=== PATIENT | male | born 1960 | race Caucasian/White ===

== ENCOUNTER 2016-10-23 16:30 | Inpatient (IN) | payer BC ==
[~2016-10-23] VITALS: Ht 193 cm; Wt 107.6 kg
--- NOTE | ~2016-10-23 | DS ---
PATIENT'S NAME: SIMON FLYNN [facility] AGE: 56 Y [address] ROOM: [address] [address] [place] [facility] [place] DATE: 10/23/2016 Discharge Summary DISCHARGE DATE: 10/27/2016 FAMILY PHYSICIAN: Ayse Kingston MD ATTENDING PHYSICIAN: Ozzy Stephenson DIAGNOSES: Phlegmon of the sigmoid colon, worrisome for perforated acute diverticulitis. HISTORY OF PRESENT ILLNESS: Mr. Flynn is a 56-year-old gentleman who had developed abdominal pain 1 week prior to admission. He had nausea, vomiting, and fevers associated with this. He felt like he had gotten better, but then had acute onset of severe abdominal pain again a few days later. The patient was evaluated with a CT scan that showed a 6-cm phlegmon posterior to the sigmoid colon, concerning for contained perforation and possibly early abscess formation. There were no diverticula seen, but no obvious masses either. The patient had no prior history of colon problems or diverticulitis. No history of inflammatory bowel disease. He had never had a prior colonoscopy. The patient was transferred to [facility] under the care of Dr. Stephenson. Dr. Stephenson reviewed the CT scan and recommended conservative treatment with bowel rest and IV antibiotics. The patient was admitted to the Medical- Surgical Unit where he initially was allowed sips of water only. Activity as tolerated. Zosyn was started for antibiotic and Dilaudid for pain control. On October 24, the patient was feeling better. He did have some cramping in the lower abdomen. He had had a formed bowel movement. Temperature was 99.2. White blood cell count was 14.9, compared to 17,000 on admission. The patient was started on a clear liquid diet. The following day, the patient continued to feel like he was getting better, but his white blood cell count remained at 14.9. He was advanced to a full liquid diet. On October 26, the patient was doing well, was afebrile, and white blood cell count came down to 8.7. He was advanced to regular diet and IV was saline locked. On the morning of October 27, the patient was feeling good, he had no pain, he was tolerating regular diet, bowels were soft, he was afebrile, white blood cell count remained at 8.5. Arrangements were made for the patient to discharge home. DISCHARGE INSTRUCTIONS: Include no restrictions on diet. No restrictions on activity. We will set up for a CT scan of the abdomen and pelvis in [place], [place] on November 01 to follow up on the phlegmon of the sigmoid colon and to rule out a formation of an abscess. If this does show an abscess, than he could tentatively come up to [place] on November 02 for a drain placement. The patient will also need to plan for a colonoscopy in 6-8 weeks. DISCHARGE MEDICATIONS: 1. Norvasc 5 mg p.o. daily. 2. CoQ10 100 mg p.o. daily. PATIENT'S NAME: SIMON FLYNN [facility] AGE: 56 Y [address] ROOM: [address] [address] [place]: [facility] [place] DATE: 10/23/2016 Discharge Summary DISCHARGE DATE: 10/27/2016 FAMILY PHYSICIAN: Ayse Kingston MD ATTENDING PHYSICIAN: Ozzy Stephenson 3. [place] leaf extract 500 mg p.o. daily. 4. Multivitamin minerals 1 daily for men 2 tabs p.o. daily. 5. Colace 100 mg p.o. twice daily. 6. Advil 400 mg p.o. q.6 hours p.r.n. pain. 7. Artificial tears 1 drop ophthalmic as needed p.r.n. for dry eyes. 8. The patient was previously given a prescription for Cipro 500 mg p.o. twice daily for 7 days, which was to start on October 23. He only took 1 tablet prior to admission. We will have him finish that prescription and an additional 3 days prescription was also written for a total of 10 days. 9. Prescription for Flagyl 500 mg 1 p.o. q.8 hours x10 days was also written for. For specifics on day-to-day care, please refer to the hospital chart. DOREEN CARRINGTON PA-C FOR MD STEPHANIE BOB/junie /[id number] d: 10/28/16 0213 t: 11/06/16 0944, DISCHARGE SUMMARY
--- NOTE | ~2016-10-23 | HP ---
PATIENT'S NAME: SIMON FLYNN [facility] AGE: 56 Y [address] ROOM: [place] [address] [place]: [facility] [place] DATE: 10/23/2016 History & Physical DISCHARGE DATE: FAMILY PHYSICIAN: AYSE ZHANG MD ATTENDING PHYSICIAN: Bernard Stephenson DATE OF SERVICE: CHIEF COMPLAINT: Ruptured sigmoid colon. HISTORY OF PRESENT ILLNESS: The patient is a 56-year-old gentleman, who 1 week ago developed some lower abdominal pain with some nausea, vomiting and fevers. He assumed he had the flu. He continued to work and drink fluids though his appetite was decreased. He felt feverish intermittently, but did not ever check a temperature. He continued to work off and on through this. Sunday then he thought, he felt quite a bit better and was getting over it. Unfortunately evening, he had an abrupt onset of quite severe abdominal pain. This was much more intense than what he had developed before. He still describes it is coming and going in nature. He had some obstipation issues, but did start passing gas today. He has had 1 episode of vomiting since then, but overall thinks that has improved. He still does not have a great appetite. He has tolerated liquids. He has not had a bowel movement several days. The patient was seen by Dr. Zhang today and noted to have an elevated white count. A CT scan was obtained. This shows a 6 cm phlegmon posterior to the sigmoid colon concerning for contained perforation and possible early abscess formation. Of note, there was no diverticuli seen, but there are no obvious masses either. The patient has no previous history of colon problems or diverticulitis. He has no history of inflammatory bowel disease or Crohn disease. He has no chronic bowel problems in the past. He has never had a previous colonoscopy, however. PAST MEDICAL HISTORY: Really unremarkable. He is found to be hypertensive today, but before this had no chronic health issues. MEDICATIONS: He was taking no medications. ALLERGIES: NO ALLERGIES. PAST SURGICAL HISTORY: No previous surgeries. PATIENT'S NAME: SIMON FLYNN [facility] AGE: 56 Y [address] ROOM: [place] [address] LOCATION: [facility] [place]MIT DATE: 10/23/2016 History & Physical DISCHARGE DATE: FAMILY PHYSICIAN: AYSE ZHANG MD ATTENDING PHYSICIAN: Bernard Stephenson SOCIAL HISTORY: The patient is . He denies tobacco use. No history of alcohol abuse. FAMILY HISTORY: Negative for any colon cancers, Crohn disease or diverticular problems. REVIEW OF SYSTEMS: Did not reveal any pertinent findings other than those listed in the HPI. PHYSICAL EXAMINATION: GENERAL: The patient is a healthy well-nourished gentleman. He appears slightly younger than his stated age. He is in no obvious distress or discomfort. He actually states he is feeling better than he has all week. VITAL SIGNS: See nursing notes. HEENT: Normocephalic, atraumatic. Pupils are equal. There is no scleral icterus. External ears, nose, and eyelids unremarkable. NECK: There are no masses or adenopathy. Breathing is nonlabored. LUNGS: Clear to auscultation without rales, rhonchi, or wheezing. HEART: Regular rate and rhythm. ABDOMEN: Soft. It is not distended. He does have bowel sounds present. He is firm in the lower abdomen particularly in the left lower quadrant suprapubic area, but really does not have any pain to palpation. No obvious hernias. EXTREMITIES: No peripheral edema. No cyanosis or clubbing. No deformities. He moves all 4 extremities well. ASSESSMENT AND PLAN: A 56-year-old gentleman with developing phlegmon in the posterior sigmoid colon. Certainly, this seems most likely to be a ruptured diverticulitis though the lack of diverticulosis on CT scan is somewhat unusual. The patient looks awfully good right now. When I think based on his history, the perforation probably happened night. For now, we will treat him with bowel rest and IV antibiotics. We will watch him closely for clinical signs of improvement or deterioration with the phlegmon. It would probably be a good idea to get a repeat CAT scan in a few weeks just to make sure this is resolving and not developing an abscess. Ultimately, I would recommend a colonoscopy once he is over this ordeal to make sure there was no malignancy associated with the perforation. BERNARD STEPHENSON MD PATIENT'S NAME: SIMON FLYNN [facility] AGE: 56 Y [address] ROOM: [place] [address] LOCATION: [facility] [place] ADMIT DATE: 10/23/2016 History & Physical DISCHARGE DATE: FAMILY PHYSICIAN: AYSE ZHANG MD ATTENDING PHYSICIAN: Bernard Stephenson/marcell /[id number] CC: Ayse Zhang MD D: T: [id number] HISTORY & PHYSICAL
[2016-10-23] MEDS ORDERED: NORVASC5 MG PO (19:15)
[2016-10-23] MEDS ORDERED: OLIVE LEAF EXT250 MG PO (19:16)
[2016-10-23] MEDS ORDERED: COQ-10100 MG PO (19:16)
[2016-10-23] MEDS ORDERED: CIPRO500 MG PO (19:16)
[2016-10-23] MEDS ORDERED: ADVIL200 MG PO (19:17)
[2016-10-23] MEDS ORDERED: COLACE100 MG PO (19:17)
[2016-10-23] MEDS ORDERED: ONE DAILY FOR1 EACH PO (19:17)
[2016-10-23] MEDS ORDERED: ARTIFICIAL TEAR15 ML OPHTH (19:18)
--- NOTE | 2016-10-23 20:51 | NUR ---
Patient is 56 yo male admitted this evening from [facility]. he has been having abdominal pain since October 15. patient states he usually drinks 6-7 beers every day. however, his last drink was on October 15. went to [place] to the [facility] today for the pain. a CT was done. patient was dismissed and on his way home to [place], [place] when he was called back and told he needed to come here. brought him by private vehicle. IV is started in left forearm with 20 ga intracath without diff. pt kendall well. Education is given as documented. patient and deny questions. pneumatics are on bilat calves. pt kendall well. call light is within reach. patient denies needs at this time. remains at bedside. Report is given to IRIS Donaldson.
--- NOTE | 2016-10-24 03:41 | NUR ---
Significant Event: Patient alert and oriented X4. Up with stand by assist. Pneumatics on. IV to L) forearm infusing NS at 150ml and intermittent IV zosyn. Sips of water only. at bedside to help with cares. Drinks 6-7 beers a day, but has not drank since pain/nausea started on 10/15. Was seen in [facility] yesterday and sent here. PRN labetolol to follow parameters given X1. Vitals stable and on room air. No plan for surgery at this time. Follow up: Sips of water
[2016-10-24 05:26] LABS: BASOPHIL % 0.2 %; EOSINOPHIL % 0.1 %; HEMATOCRIT 43.3 % (37.0-53.0); HEMOGLOBIN 15.3 g/dL (12.0-17.0); IMMATURE GRANULOCYTE # 0.1 K/uL (0.0-0.3); IMMATURE GRANULOCYTE % 0.5 %; LYMPHOCYTE # 1.1 K/uL (0.8-4.0); LYMPHOCYTE % 7.5 %; MCH 34.2 pg (27.0-34.0); MCHC 35.3 gm/dL (32.0-36.5); MCV 96.9 fl (83.0-98.0); MONOCYTE # 1.4 K/uL (0.0-1.0); MONOCYTE % 9.5 %; MPV 9.4 fl (9.4-12.4); NEUTROPHIL # (ANC) 12.2 K/uL (1.4-9.0); NEUTROPHIL % 82.2 %; NRBC % 0 /100WBC (0-0.00); PLATELET COUNT 247 K/uL (150-450); RBC 4.47 M/uL (4.00-6.00); WBC 14.9 K/uL (4.0-11.0)
[2016-10-24 05:50] LABS: ALBUMIN 2.7 gm/dL (3.5-5.0); ALK PHOS 106 IU/L (33-138); ALT 51 IU/L (12-78); ANION GAP 14.1 (10.0-19.0); AST 26 IU/L (10-40); BLOOD UREA NITROGEN 16 mg/dL (6-24); CALCIUM 8.4 mg/dL (8.5-10.5); CHLORIDE 100 mMol/L (96-110); CO2 26 mMol/L (22-32); CREATININE 1.1 mg/dL (0.6-1.3); ESTIMATED GFR (MDRD EQUATION) > 60; POTASSIUM 3.1 mMol/L (3.7-5.1); SODIUM 137 mMol/L (135-145); TOTAL BILIRUBIN 1.1 mg/dL (0.0-1.5); TOTAL PROTEIN 7.2 g/dL (6.0-8.4)
--- NOTE | 2016-10-24 10:57 | NUR ---
Met patient and at bedside today. Introduced myself and the role of the CM department. Patient lives at home with . Is independent and has no worries or concerns about discharge. Will discharge to home with and no additional needs when medically cleared.
--- NOTE | 2016-10-24 17:13 | NUR ---
Patient is alert and oriented, VSS, on room air, independent in cares. IV to L) forearm infusing NS at 150ml/hr. Received potassium IV and Zosyn. Advanced to clear liquid diet. No pain. Had 2 BMs this shift.
--- NOTE | 2016-10-25 03:26 | NUR ---
Significant Event: Patinet alert and oriented X4. Up ad maximus in room. On clear liquids. IV to L) forearm running NS at 150ml and intermittent zosyn. IV dilaudid given X3 last around 0220. Relief noted and able to sleep some. 2 BMs yesterday. Education needed on when IV diluadid is needed, patient rating pain a 1/10 and I stated we should probably hold off. Voiding fine. Follow up: Monitor pain
[2016-10-25 05:29] LABS: BASOPHIL % 0.1 %; EOSINOPHIL % 0.1 %; HEMATOCRIT 43.5 % (37.0-53.0); IMMATURE GRANULOCYTE # 0.1 K/uL (0.0-0.3); IMMATURE GRANULOCYTE % 0.5 %; LYMPHOCYTE # 1.2 K/uL (0.8-4.0); LYMPHOCYTE % 8.1 %; MCHC 34.5 gm/dL (32.0-36.5); MCV 98.6 fl (83.0-98.0); MONOCYTE # 1.5 K/uL (0.0-1.0); MONOCYTE % 10.2 %; MPV 9.4 fl (9.4-12.4); NRBC % 0 /100WBC (0-0.00); PLATELET COUNT 216 K/uL (150-450); RBC 4.41 M/uL (4.00-6.00); RDW-CV 12.1 % (11.9-14.6); WBC 14.9 K/uL (4.0-11.0)
[2016-10-25 05:46] LABS: ALBUMIN 2.5 gm/dL (3.5-5.0); ANION GAP 10.5 (10.0-19.0); BLOOD UREA NITROGEN 10 mg/dL (6-24); CHLORIDE 102 mMol/L (96-110); CO2 28 mMol/L (22-32); ESTIMATED GFR (MDRD EQUATION) > 60; PHOSPHORUS 2.6 mg/dL (2.5-4.9); POTASSIUM 3.5 mMol/L (3.7-5.1); SODIUM 137 mMol/L (135-145)
--- NOTE | 2016-10-25 16:16 | NUR ---
Significant event: Patient is alert and oriented. VSS. ON room air. IV to left forearm with normal saline at 75mls/hr. Is on a full liquid diet now,toast and cracker type stuff is okay too. Ambulates independently. Has had 3 Bm's today.Pt reports that they were mushy, after these, he reports that the cramping/tenderness in lower abd area is gone and he feels much better. Is on CIWA score with no symptoms this shift. at bedside. Cooperative with cares.
--- NOTE | 2016-10-26 03:56 | NUR ---
Significant Event:pt is a/o x3, sba takes himself to bathroom and writes on rounding sheet. pt has iv to l fa -ns@75ml/hr. ciwa score of 0. pt is on full liquids but allowed toast and crackers. Follow up:
[2016-10-26 05:03] LABS: BASOPHIL % 0.5 %; EOSINOPHIL % 0.5 %; HEMATOCRIT 40.4 % (37.0-53.0); HEMOGLOBIN 13.7 g/dL (12.0-17.0); IMMATURE GRANULOCYTE # 0.1 K/uL (0.0-0.3); IMMATURE GRANULOCYTE % 0.6 %; LYMPHOCYTE # 1.6 K/uL (0.8-4.0); LYMPHOCYTE % 18.1 %; MCH 33.7 pg (27.0-34.0); MCHC 33.9 gm/dL (32.0-36.5); MCV 99.5 fl (83.0-98.0); MONOCYTE # 0.7 K/uL (0.0-1.0); MONOCYTE % 7.7 %; MPV 9.7 fl (9.4-12.4); NEUTROPHIL # (ANC) 6.3 K/uL (1.4-9.0); NEUTROPHIL % 72.6 %; NRBC % 0 /100WBC (0-0.00); PLATELET COUNT 204 K/uL (150-450); RBC 4.06 M/uL (4.00-6.00); RDW-CV 12.3 % (11.9-14.6); WBC 8.7 K/uL (4.0-11.0)
[2016-10-26 05:14] LABS: ALBUMIN 2.3 gm/dL (3.5-5.0); ANION GAP 10.2 (10.0-19.0); BLOOD UREA NITROGEN 8 mg/dL (6-24); CALCIUM 7.8 mg/dL (8.5-10.5); CHLORIDE 107 mMol/L (96-110); CO2 26 mMol/L (22-32); ESTIMATED GFR (MDRD EQUATION) > 60; PHOSPHORUS 2.2 mg/dL (2.5-4.9); POTASSIUM 3.2 mMol/L (3.7-5.1); SODIUM 140 mMol/L (135-145)
--- NOTE | 2016-10-26 15:24 | NUR ---
Significant event: Pt. is A&O, VSS, on RA. IV to L)FA is SL with intermittent Zosyn. On regular diet, tolerates well. Ambulates independently. Multiple episodes of diarrhea, patient states they are less than in night. CIWA scores are 0. Denies pain. at bedside. Showered this AM.
--- NOTE | 2016-10-27 04:19 | NUR ---
Significant Event:PT IS A&O X3. PT IS IND IN ROOM . PT TOLERATING REG DIET, NO C/O PAIN. IV TO L FA IS SL BUT HAS INTERMITTENT IV ABX OF ZOSYN. 0500 DOSE RUNNING @ SHIFT CHANGE. PT HYPERTENSIVE 169 AND 160 SBP. OTHER VSS. Follow up:PROBABLY DISCHARGE HOME TODAY.
[2016-10-27 05:18] LABS: BASOPHIL # 0.1 K/uL (0.0-0.2); BASOPHIL % 0.7 %; EOSINOPHIL # 0.1 K/uL (0.0-0.5); EOSINOPHIL % 1.1 %; HEMATOCRIT 40.7 % (37.0-53.0); IMMATURE GRANULOCYTE % 0.5 %; LYMPHOCYTE # 1.7 K/uL (0.8-4.0); LYMPHOCYTE % 19.6 %; MCH 33.8 pg (27.0-34.0); MCHC 34.4 gm/dL (32.0-36.5); MCV 98.3 fl (83.0-98.0); MONOCYTE # 0.7 K/uL (0.0-1.0); MONOCYTE % 8.6 %; MPV 9.8 fl (9.4-12.4); NEUTROPHIL # (ANC) 5.9 K/uL (1.4-9.0); NEUTROPHIL % 69.5 %; NRBC % 0 /100WBC (0-0.00); PLATELET COUNT 230 K/uL (150-450); RBC 4.14 M/uL (4.00-6.00); RDW-CV 12.1 % (11.9-14.6); WBC 8.5 K/uL (4.0-11.0)
[2016-10-27] MEDS ORDERED: FLAGYL500 MG PO (08:50)
--- NOTE | 2016-10-27 10:45 | NUR ---
D: ORDERS RECEIVED FOR THE PATIENT TO BE DISCHARGED TO HOME TODAY. I: DISMISSAL INSTRUCTIONS WERE PREPARED AND REVIEWED WITH THE PATIENT AND HIS VIRTUALLY. THE FOLLOWING INFORMATION WAS DISCUSSED INCLUDING KAREN TEACHING SHEETS PROVIDIED: CT SCAN, UNDERSTANDING DIVERTICULOSIS AND DIVERTICULITIS, DISCHARGE INSTRUCTIONS FOR DIVERTICULITIS, CIPRO, FLAGYL, AND PREVENTING DVT. ALSO GAVE THEM KAREN EDUCATION ON TAKING AMLODIPINE AND NORVASC DRUG INFORMATION PER PATIENT REQUEST. THIS IS A NEW MEDICATION STARTED A FEW DAYS PRIOR TO HOSPITALIZATION. REVIEWED FOLLOWING UP APPOINTMENTS AND CT SCAN OF ABDOMEN/PELVIS IN [facility] ON 11/01/16 AT 0900. R: THE PATIENT AND HIS BOTH VERBALIZED UNDERSTANDING OF THE DISMISSAL EDUCATION AT THE TIME OF TEACHING WITH NO FURTHER QUESTIONS. P: THE ABOVE INFORMATION WAS SHARED WITH THE PRIMARY NURSE AND THE CHARGE NURSE THAT THE DISMISSAL EDUCATION IS COMPLETED. THE PATIENT IS READY FOR DISCHARGE TO THE FRONT DOOR VIA WHEEL CHAIR BY NURSING STAFF.
--- NOTE | 2016-10-27 10:48 | NUR ---
Significant Event: Patient up ad maximus in room. Ate well for breakfast and denies pain and nausea. Antibiotic finished and IV discontinued. Doctor in and said patient could go home. Patient showered independently prior to dismissal. Dismissal instructions reviewed with patient by virtual nurse. Significant other here and going to drive patient home. Patient walked out with JUDICIAL ASSISTANT.
== END 2016-10-27 10:21 | disposition disaster alternative care site (69) | DRG 392 ==
LOC: GMSU 17:56
PROVIDERS: Physician Assistant; ADMIT Surgery
DX: K57.20 Diverticulitis of large intestine with perforation and abscess without bleeding (principal)
CPT/HCPCS: J1170; J2543; J3480; J7030; J7050